=== PATIENT | male | born 1940 | race Caucasian/White ===

== ENCOUNTER 2021-08-11 06:01 | Inpatient (IN) | payer MEDICARE ==
[~2021-08-11] VITALS: Ht 179.1 cm; Wt 74.4 kg
[~2021-08-11 06:01] MED LIST: BAYER PM CAPLE1 EACH PO; CLOPIDOGREL75 MG PO; DONEPEZIL HCL5 MG PO; FISH OIL PO; METOPROLOL SUCC50 MG PO; PRAVASTATIN SOD40 MG PO; PROTONIX40 MG/ML PO; TERBINAFINE HC250 MG PO; VIT D PO; [UNRECOGNIZED DRUG - OTHER] PO
[2021-08-11] MEDS ORDERED: SODIUM CHLORIDE 0.9% 1000ML 1,000 ML IV STA (06:35)
[2021-08-11 06:53] LABS: BASOPHILS % 0.3 % (0.0-1.0); HEMOGLOBIN 16.3 g/dL (14.0-18.0); LYMPHOCYTES # (AUTO) 0.2 (1.0-3.2); LYMPHOCYTES % 1.3 % (18.0-39.1); MEAN CORPUSCULAR HEMOGLOBIN 30.4 pg (28-32); MEAN CORPUSCULAR HGB CONC 32.6 g/dL (31-35); MEAN CORPUSCULAR VOLUME 93.3 fL (81-99); MONOCYTES # (AUTO) 0.3 (0.2-0.8); MONOCYTES % 1.9 % (4.4-11.3); NEUTROPHILS # (AUTO) 14.5 (2.1-6.9); NEUTROPHILS % 95.6 % (38.7-80.0); PLATELET COUNT 110 x10e3/uL (140-360); RED BLOOD COUNT 5.36 x10e6/uL (4.3-5.7); RED CELL DISTRIBUTION WIDTH 13.9 % (11.7-14.4)
[2021-08-11 08:07] LABS: INR 1.08; PROTHROMBIN TIME 14.9 seconds (11.9-14.5)
[2021-08-11 08:08] LABS: PARTIAL THROMBOPLASTIN TIME 22.9 seconds (23.8-35.5)
[2021-08-11 08:10] LABS: CLARITY,URINE CLOUDY (CLEAR); COLOR,URINE YELLOW (YELLOW); KETONES,URINE NEGATIVE (NEGATIVE); LEUKOCYTE ESTERASE ,URINE NEGATIVE (NEGATIVE); NITRITE,URINE NEGATIVE (NEGATIVE); PROTEIN,URINE DIPSTICK >=300 (NEGATIVE); URINE UROBILINOGEN 0.2 mg/dL (0.2 - 1)
[2021-08-11] MEDS: CEFEPIME 2 GM in SODIUM CHLORIDE 0.9% 100 ML IV SCH ×2 (08:13→22:00)
[2021-08-11 08:30] LABS: ALBUMIN 3.7 g/dL (3.5-5.0); ANION GAP 17.9 mmol/L (8-16); CREATININE, SERUM 1.07 mg/dL (0.72-1.25); MAGNESIUM 1.6 MG/DL (1.3-2.1); POTASSIUM 3.9 mmol/L (3.5-5.1)
[2021-08-11 08:31] LABS: BACTERIA,URINE MODERATE /HPF; EPITHELIAL CELLS,URINE FEW /LPF; WBC,URINE (MAN) 21-50 /HPF (0-5)
[2021-08-11] MEDS ORDERED: LEVOTHYROXINE50 MCG PO (08:41)
[2021-08-11] MEDS ORDERED: ELIQUIS2.5 MG PO (08:41)
[2021-08-11] MEDS ORDERED: FAMOTIDINE20 MG PO (08:43)
[2021-08-11] MEDS ORDERED: IRON PO (08:43)
[2021-08-11] MEDS ORDERED: KEPPRA750 MG PO (08:43)
[2021-08-11] MEDS ORDERED: METOPROLOL TART25 MG PO (08:44)
[2021-08-11 08:49] LABS: CREATINE KINASE MB 1.5 ng/mL (0-5.0)
[2021-08-11] MEDS ORDERED: ONDANSETRON HCL INJ 2MG/ML 2ML 2 MG/ML VIAL IV PRN ×2 (09:15→14:00)
[2021-08-11] MEDS: FAMOTIDINE 20 MG/2 ML VIAL IV SCH (09:27)
[2021-08-11] MEDS ORDERED: SODIUM CHLORIDE 0.9% 500ML 500 ML IV ONE (09:30)
[2021-08-11] MEDS ORDERED: SODIUM CHLORIDE 0.9% 500ML 500 ML ONE (09:32)
[2021-08-11] MEDS: SODIUM CHLORIDE 0.9% 1000ML 1,000 ML IV SCH ×2 (10:25→22:00)
[2021-08-11 11:21] VITALS: BP 113/91
[2021-08-11 11:51] VITALS: BP 113/91
[2021-08-11 11:55] VITALS: BP 113/91
[2021-08-11 15:34] VITALS: BP 111/84
[2021-08-11] MEDS: FAMOTIDINE 20 MG TAB PO SCH (16:02)
[2021-08-11] MEDS: LEVETIRACETAM 500 MG TAB PO SCH (16:02)
[2021-08-11 17:31] LABS: CREATINE KINASE MB 1.6 ng/mL (0-5.0)
[2021-08-11 19:57] VITALS: BP 128/98
[2021-08-11 21:00] VITALS: BP 128/98
[2021-08-11] MEDS: PRAVASTATIN 20 MG TAB PO SCH (22:00)
[2021-08-12 04:49] VITALS: BP 144/97
[2021-08-12 06:03] LABS: BASOPHILS # (AUTO) 0.1 (0.0-0.1); BASOPHILS % 0.3 % (0.0-1.0); EOSINOPHILS % 0.1 % (0.0-6.0); HEMOGLOBIN 16.2 g/dL (14.0-18.0); LYMPHOCYTES # (AUTO) 0.6 (1.0-3.2); LYMPHOCYTES % 4.1 % (18.0-39.1); MEAN CORPUSCULAR HEMOGLOBIN 30.4 pg (28-32); MEAN CORPUSCULAR HGB CONC 33.1 g/dL (31-35); MEAN CORPUSCULAR VOLUME 91.9 fL (81-99); MONOCYTES # (AUTO) 1.1 (0.2-0.8); MONOCYTES % 7.3 % (4.4-11.3); NEUTROPHILS # (AUTO) 12.8 (2.1-6.9); NEUTROPHILS % 87.7 % (38.7-80.0); PLATELET COUNT 100 x10e3/uL (140-360); RED BLOOD COUNT 5.33 x10e6/uL (4.3-5.7); RED CELL DISTRIBUTION WIDTH 14.1 % (11.7-14.4)
[2021-08-12 06:37] LABS: ALBUMIN/GLOBULIN RATIO 0.9 (0.8-2.0); ANION GAP 13.7 mmol/L (8-16); CALCIUM 8.6 mg/dL (8.4-10.2); CHOL/HDL RATIO 2.1 (3.9-4.7); CREATININE, SERUM 0.78 mg/dL (0.72-1.25); POTASSIUM 3.7 mmol/L (3.5-5.1)
[2021-08-12 06:44] LABS: CREATINE KINASE MB 1.4 ng/mL (0-5.0)
[2021-08-12] MEDS: LEVOTHYROXINE SODIUM 50 MCG TAB PO SCH (06:45)
[2021-08-12 07:55] VITALS: BP 144/103
[2021-08-12 08:00] VITALS: BP 144/103
[2021-08-12] MEDS: CEFEPIME 2 GM in SODIUM CHLORIDE 0.9% 100 ML IV SCH ×2 (08:05→20:45)
[2021-08-12] MEDS: FAMOTIDINE 20 MG/2 ML VIAL IV SCH (08:06)
[2021-08-12] MEDS: LEVETIRACETAM 500 MG TAB PO SCH ×2 (08:07→16:03)
[2021-08-12] MEDS: APIXAB 2.5 MG TABLET PO SCH (08:07)
[2021-08-12] MEDS: DONEPEZIL HCL 5 MG TAB PO SCH (08:08)
[2021-08-12] MEDS: FAMOTIDINE 20 MG TAB PO SCH ×2 (08:08→16:03)
[2021-08-12] MEDS ORDERED: METOPROLOL TARTRATE 25 MG TAB PO SCH (09:00)
[2021-08-12 11:55] VITALS: BP 150/108
[2021-08-12 15:34] VITALS: BP 152/107
[2021-08-12 20:00] VITALS: BP 171/112
[2021-08-12] MEDS: CLONIDINE HCL 0.1 MG TAB PO PRN (20:45)
[2021-08-12] MEDS: PRAVASTATIN 20 MG TAB PO SCH (20:45)
[2021-08-13] VITALS (9 sets, daily range): BP systolic 85–151; BP diastolic 56–113
[2021-08-13] MEDS ORDERED: HYDRALAZINE HCL 20 MG/ML VIAL ONE (04:14)
[2021-08-13] MEDS: CLONIDINE HCL 0.1 MG TAB PO PRN (04:18)
[2021-08-13] MEDS: HYDRALAZINE HCL 20 MG/ML VIAL IV PRN (04:18)
[2021-08-13] MEDS: LEVOTHYROXINE SODIUM 50 MCG TAB PO SCH (05:44)
[2021-08-13 05:54] LABS: HEMATOCRIT 44.2 % (38.2-49.6); HEMOGLOBIN 14.9 g/dL (14.0-18.0); MEAN CORPUSCULAR HEMOGLOBIN 30.3 pg (28-32); MEAN CORPUSCULAR HGB CONC 33.7 g/dL (31-35); MEAN CORPUSCULAR VOLUME 89.8 fL (81-99); NEUTROPHILS % 87.4 % (38.7-80.0); PLATELET COUNT 101 x10e3/uL (140-360); RED BLOOD COUNT 4.92 x10e6/uL (4.3-5.7); RED CELL DISTRIBUTION WIDTH 13.5 % (11.7-14.4)
[2021-08-13 05:55] LABS: BASOPHILS % 0.3 % (0.0-1.0); EOSINOPHILS % 0.2 % (0.0-6.0); LYMPHOCYTES # (AUTO) 0.6 (1.0-3.2); LYMPHOCYTES % 4.4 % (18.0-39.1); MONOCYTES % 7.3 % (4.4-11.3); NEUTROPHILS # (AUTO) 11.8 (2.1-6.9)
[2021-08-13] MEDS: CEFEPIME 2 GM in SODIUM CHLORIDE 0.9% 100 ML IV SCH (08:12)
[2021-08-13] MEDS: DONEPEZIL HCL 5 MG TAB PO SCH (08:13)
[2021-08-13] MEDS: APIXAB 2.5 MG TABLET PO SCH (08:13)
[2021-08-13] MEDS: LEVETIRACETAM 500 MG TAB PO SCH ×2 (08:14→16:17)
[2021-08-13] MEDS: FAMOTIDINE 20 MG TAB PO SCH ×2 (08:14→16:17)
[2021-08-13] MEDS: METOPROLOL TARTRATE 25 MG TAB PO SCH ×2 (09:00→13:07)
[2021-08-13] MEDS: ACETAMINOPHEN 325 MG TAB PO PRN (10:59)
[2021-08-13] MEDS ORDERED: ONDANSETRON HCL 4 MG ORAL DISINTEGRATING TAB PO PRN (15:30)
[2021-08-13] MEDS ORDERED: IOPAMIDOL 370 MG/ML 200 ML INFUS..BTL INJ ONE (16:11)
[2021-08-13] MEDS ORDERED: SODIUM CHLORIDE 0.9% 50ML 50 ML ONE (16:11)
[2021-08-13] MEDS: PRAVASTATIN 20 MG TAB PO SCH (21:40)
[2021-08-13] MEDS: CEFEPIME 1 GM in SODIUM CHLORIDE 0.9% 100 ML IV SCH (21:40)
[2021-08-14] VITALS (11 sets, daily range): BP systolic 90–157; BP diastolic 69–107
[2021-08-14 06:10] LABS: ALBUMIN 2.6 g/dL (3.5-5.0); ANION GAP 14.3 mmol/L (8-16); CALCIUM 8.7 mg/dL (8.4-10.2); CREATININE, SERUM 1.31 mg/dL (0.72-1.25); POTASSIUM 4.3 mmol/L (3.5-5.1)
[2021-08-14] MEDS: LEVOTHYROXINE SODIUM 50 MCG TAB PO SCH (06:47)
[2021-08-14 06:49] LABS: BASOPHILS % 0.3 % (0.0-1.0); EOSINOPHILS % 0.3 % (0.0-6.0); HEMATOCRIT 42.9 % (38.2-49.6); HEMOGLOBIN 14.5 g/dL (14.0-18.0); LYMPHOCYTES # (AUTO) 0.6 (1.0-3.2); LYMPHOCYTES % 3.9 % (18.0-39.1); MEAN CORPUSCULAR HEMOGLOBIN 30.7 pg (28-32); MEAN CORPUSCULAR HGB CONC 33.8 g/dL (31-35); MEAN CORPUSCULAR VOLUME 90.7 fL (81-99); MONOCYTES # (AUTO) 1.2 (0.2-0.8); MONOCYTES % 7.3 % (4.4-11.3); NEUTROPHILS # (AUTO) 13.8 (2.1-6.9); NEUTROPHILS % 87.7 % (38.7-80.0); RED BLOOD COUNT 4.73 x10e6/uL (4.3-5.7); RED CELL DISTRIBUTION WIDTH 13.9 % (11.7-14.4)
[2021-08-14 06:54] LABS: PLATELET COUNT 74 x10e3/uL (140-360)
[2021-08-14 07:54] LABS: BILIRUBIN,DIRECT 0.7 mg/dL (0.0-0.5)
[2021-08-14] MEDS: FAMOTIDINE 20 MG TAB PO SCH (08:42)
[2021-08-14] MEDS: APIXAB 2.5 MG TABLET PO SCH (08:42)
[2021-08-14] MEDS: CEFEPIME 1 GM in SODIUM CHLORIDE 0.9% 100 ML IV SCH (08:42)
[2021-08-14] MEDS: DONEPEZIL HCL 5 MG TAB PO SCH (08:42)
[2021-08-14] MEDS: LEVETIRACETAM 500 MG TAB PO SCH ×2 (08:42→17:35)
[2021-08-14] MEDS: METOPROLOL TARTRATE 25 MG TAB PO SCH (08:42)
[2021-08-14] MEDS: HYDRALAZINE HCL 20 MG/ML VIAL IV PRN (08:43)
[2021-08-14] MEDS ORDERED: SODIUM CHLORIDE 0.9% 1000ML 1,000 ML IV SCH (11:30)
[2021-08-14] MEDS: SODIUM CHLORIDE 0.9% 1000ML 1,000 ML IV SCH ×2 (12:28→21:30)
[2021-08-14] MEDS: SODIUM CHLORIDE 1 GM TAB PO SCH ×2 (12:28→21:30)
[2021-08-14] MEDS ORDERED: MAGNESIUM SULFATE 2GM/50ML 50 ML IV ONE (12:30)
[2021-08-14] MEDS: AMIODARONE HCL 200 MG TAB PO SCH (17:35)
[2021-08-14] MEDS: PRAVASTATIN 20 MG TAB PO SCH (21:30)
[2021-08-15] VITALS (9 sets, daily range): BP systolic 102–132; BP diastolic 70–102
[2021-08-15] MEDS: HYDRALAZINE HCL 20 MG/ML VIAL IV PRN (01:40)
[2021-08-15 05:00] LABS: BASOPHILS % 0.2 % (0.0-1.0); EOSINOPHILS % 0.2 % (0.0-6.0); HEMATOCRIT 39.6 % (38.2-49.6); HEMOGLOBIN 14.1 g/dL (14.0-18.0); LYMPHOCYTES # (AUTO) 0.5 (1.0-3.2); LYMPHOCYTES % 2.5 % (18.0-39.1); MEAN CORPUSCULAR HEMOGLOBIN 30.9 pg (28-32); MEAN CORPUSCULAR HGB CONC 35.6 g/dL (31-35); MEAN CORPUSCULAR VOLUME 86.8 fL (81-99); MONOCYTES # (AUTO) 1.5 (0.2-0.8); MONOCYTES % 8.6 % (4.4-11.3); NEUTROPHILS # (AUTO) 15.7 (2.1-6.9); NEUTROPHILS % 87.6 % (38.7-80.0); PLATELET COUNT 76 x10e3/uL (140-360); RED BLOOD COUNT 4.56 x10e6/uL (4.3-5.7); RED CELL DISTRIBUTION WIDTH 13.6 % (11.7-14.4)
[2021-08-15 05:31] LABS: ALBUMIN 2.2 g/dL (3.5-5.0); ALBUMIN/GLOBULIN RATIO 0.6 (0.8-2.0); ANION GAP 12.8 mmol/L (8-16); CALCIUM 8.3 mg/dL (8.4-10.2); CREATININE, SERUM 1.06 mg/dL (0.72-1.25); POTASSIUM 3.8 mmol/L (3.5-5.1)
[2021-08-15] MEDS: LEVOTHYROXINE SODIUM 50 MCG TAB PO SCH (06:46)
[2021-08-15] MEDS: DONEPEZIL HCL 5 MG TAB PO SCH (08:49)
[2021-08-15] MEDS: LEVETIRACETAM 500 MG TAB PO SCH ×2 (08:49→17:26)
[2021-08-15] MEDS: AMIODARONE HCL 200 MG TAB PO SCH (08:49)
[2021-08-15] MEDS: SODIUM CHLORIDE 0.9% 1000ML 1,000 ML IV SCH (08:49)
[2021-08-15] MEDS: SODIUM CHLORIDE 1 GM TAB PO SCH ×3 (08:50→21:23)
[2021-08-15] MEDS: METOPROLOL TARTRATE 25 MG TAB PO SCH (08:50)
[2021-08-15] MEDS ORDERED: ALBUTEROL SULF 0.083% NEB SOLN 3 ML NEB NEB PRN (10:45)
[2021-08-15] MEDS: POLYETHYLENE GLYCOL 3350 17 GM PACK PO SCH (11:15)
[2021-08-15] MEDS ORDERED: FUROSEMIDE INJ 10 MG/ML 2 ML VIAL IV ONE (15:45)
[2021-08-15] MEDS: PIPERACILLIN/TAZOBACTAM 3.375 GM in SODIUM CHLORIDE 0.9% 50ML 50 ML IV SCH ×2 (17:25→21:23)
[2021-08-15] MEDS: APIXAB 2.5 MG TABLET PO SCH (17:26)
[2021-08-15] MEDS: BENZONATATE 100 MG CAP PO SCH (18:13)
[2021-08-15] MEDS: PRAVASTATIN 20 MG TAB PO SCH (21:23)
[2021-08-16] VITALS (7 sets, daily range): BP systolic 131–150; BP diastolic 96–116
[2021-08-16] MEDS: PIPERACILLIN/TAZOBACTAM 3.375 GM in SODIUM CHLORIDE 0.9% 50ML 50 ML IV SCH (05:40)
[2021-08-16] MEDS: LEVOTHYROXINE SODIUM 50 MCG TAB PO SCH (05:41)
[2021-08-16 05:58] LABS: BASOPHILS # (AUTO) 0.1 (0.0-0.1); BASOPHILS % 0.3 % (0.0-1.0); EOSINOPHILS % 0.2 % (0.0-6.0); HEMATOCRIT 38.6 % (38.2-49.6); LYMPHOCYTES # (AUTO) 0.3 (1.0-3.2); LYMPHOCYTES % 1.8 % (18.0-39.1); MEAN CORPUSCULAR HEMOGLOBIN 30.8 pg (28-32); MEAN CORPUSCULAR HGB CONC 36.3 g/dL (31-35); MEAN CORPUSCULAR VOLUME 84.8 fL (81-99); MONOCYTES # (AUTO) 1.7 (0.2-0.8); MONOCYTES % 10.1 % (4.4-11.3); NEUTROPHILS # (AUTO) 14.4 (2.1-6.9); NEUTROPHILS % 84.9 % (38.7-80.0); PLATELET COUNT 63 x10e3/uL (140-360); RED BLOOD COUNT 4.55 x10e6/uL (4.3-5.7); RED CELL DISTRIBUTION WIDTH 13.8 % (11.7-14.4)
[2021-08-16 06:51] LABS: ALBUMIN 2.2 g/dL (3.5-5.0); ALBUMIN/GLOBULIN RATIO 0.6 (0.8-2.0); ANION GAP 12.7 mmol/L (8-16); CALCIUM 8.6 mg/dL (8.4-10.2); CREATININE, SERUM 0.87 mg/dL (0.72-1.25); POTASSIUM 3.7 mmol/L (3.5-5.1)
[2021-08-16] MEDS: DOCUSATE SODIUM 100 MG CAP PO SCH ×2 (08:33→16:51)
[2021-08-16] MEDS: AMIODARONE HCL 200 MG TAB PO SCH (08:33)
[2021-08-16] MEDS: POLYETHYLENE GLYCOL 3350 17 GM PACK PO SCH (08:34)
[2021-08-16] MEDS: APIXAB 2.5 MG TABLET PO SCH ×2 (08:34→16:51)
[2021-08-16] MEDS: DONEPEZIL HCL 5 MG TAB PO SCH (08:34)
[2021-08-16] MEDS: SODIUM CHLORIDE 1 GM TAB PO SCH ×3 (08:34→21:21)
[2021-08-16] MEDS: BENZONATATE 100 MG CAP PO SCH ×3 (08:34→21:00)
[2021-08-16] MEDS: LEVETIRACETAM 500 MG TAB PO SCH ×2 (08:37→16:51)
[2021-08-16] MEDS: METOPROLOL TARTRATE 25 MG TAB PO SCH (08:38)
[2021-08-16] MEDS ORDERED: SODIUM CHLORIDE 1 GM TAB PO ONE (11:00)
[2021-08-16] MEDS: HYDRALAZINE HCL 20 MG/ML VIAL IV PRN (21:00)
[2021-08-16] MEDS: PRAVASTATIN 20 MG TAB PO SCH (21:00)
[2021-08-17] VITALS (8 sets, daily range): BP systolic 109–116; BP diastolic 85–94
[2021-08-17] MEDS: LEVOTHYROXINE SODIUM 50 MCG TAB PO SCH (05:49)
[2021-08-17 06:22] LABS: ALBUMIN 2.1 g/dL (3.5-5.0); ALBUMIN/GLOBULIN RATIO 0.6 (0.8-2.0); ANION GAP 12.6 mmol/L (8-16); CALCIUM 8.9 mg/dL (8.4-10.2); CREATININE, SERUM 0.78 mg/dL (0.72-1.25); POTASSIUM 3.6 mmol/L (3.5-5.1)
[2021-08-17] MEDS: DOCUSATE SODIUM 100 MG CAP PO SCH ×2 (09:18→17:16)
[2021-08-17] MEDS: SODIUM CHLORIDE 1 GM TAB PO SCH ×3 (09:18→20:58)
[2021-08-17] MEDS: LEVETIRACETAM 500 MG TAB PO SCH ×2 (09:18→17:16)
[2021-08-17] MEDS: APIXAB 2.5 MG TABLET PO SCH ×2 (09:18→17:16)
[2021-08-17] MEDS: POLYETHYLENE GLYCOL 3350 17 GM PACK PO SCH (09:18)
[2021-08-17] MEDS: AMIODARONE HCL 200 MG TAB PO SCH (09:18)
[2021-08-17] MEDS: BENZONATATE 100 MG CAP PO SCH ×3 (09:18→21:37)
[2021-08-17] MEDS: DONEPEZIL HCL 5 MG TAB PO SCH (09:18)
[2021-08-17] MEDS: METOPROLOL TARTRATE 25 MG TAB PO SCH (09:19)
[2021-08-17] MEDS ORDERED: LACTULOSE SYRUP 20 GM/30 ML UDC PO ONE (14:15)
[2021-08-17] MEDS ORDERED: CITRATE OF MAGNESIA 300ML BOTTLE PO PRN (18:30)
[2021-08-17] MEDS: PRAVASTATIN 20 MG TAB PO SCH (20:58)
[2021-08-18] VITALS (8 sets, daily range): BP systolic 123–150; BP diastolic 88–101
[2021-08-18] MEDS: LEVOTHYROXINE SODIUM 50 MCG TAB PO SCH (06:00)
[2021-08-18 06:34] LABS: BASOPHILS % 0.2 % (0.0-1.0); EOSINOPHILS # (AUTO) 0.2 (0.0-0.4); EOSINOPHILS % 1.3 % (0.0-6.0); HEMOGLOBIN 14.3 g/dL (14.0-18.0); LYMPHOCYTES # (AUTO) 0.6 (1.0-3.2); LYMPHOCYTES % 3.3 % (18.0-39.1); MEAN CORPUSCULAR HEMOGLOBIN 29.9 pg (28-32); MEAN CORPUSCULAR VOLUME 87.7 fL (81-99); MONOCYTES # (AUTO) 1.3 (0.2-0.8); MONOCYTES % 7.1 % (4.4-11.3); NEUTROPHILS # (AUTO) 15.9 (2.1-6.9); NEUTROPHILS % 86.9 % (38.7-80.0); PLATELET COUNT 83 x10e3/uL (140-360); RED BLOOD COUNT 4.79 x10e6/uL (4.3-5.7); RED CELL DISTRIBUTION WIDTH 14.4 % (11.7-14.4)
[2021-08-18 07:18] LABS: ANION GAP 11.9 mmol/L (8-16); CALCIUM 8.5 mg/dL (8.4-10.2); CREATININE, SERUM 0.74 mg/dL (0.72-1.25); POTASSIUM 3.9 mmol/L (3.5-5.1)
[2021-08-18] MEDS: DONEPEZIL HCL 5 MG TAB PO SCH (08:54)
[2021-08-18] MEDS: DOCUSATE SODIUM 100 MG CAP PO SCH ×2 (08:54→16:51)
[2021-08-18] MEDS: AMIODARONE HCL 200 MG TAB PO SCH (08:54)
[2021-08-18] MEDS: POLYETHYLENE GLYCOL 3350 17 GM PACK PO SCH (08:54)
[2021-08-18] MEDS: APIXAB 2.5 MG TABLET PO SCH ×2 (08:54→16:51)
[2021-08-18] MEDS: METOPROLOL TARTRATE 25 MG TAB PO SCH (08:54)
[2021-08-18] MEDS: BENZONATATE 100 MG CAP PO SCH ×3 (08:55→21:00)
[2021-08-18] MEDS: SODIUM CHLORIDE 1 GM TAB PO SCH ×3 (08:55→21:00)
[2021-08-18] MEDS: LEVETIRACETAM 500 MG TAB PO SCH ×2 (09:24→16:51)
[2021-08-18] MEDS: PRAVASTATIN 20 MG TAB PO SCH (21:00)
[2021-08-19] VITALS (8 sets, daily range): BP systolic 108–174; BP diastolic 66–110
[2021-08-19] MEDS: ACETAMINOPHEN 325 MG TAB PO PRN ×2 (01:52→20:38)
[2021-08-19] MEDS: LEVOTHYROXINE SODIUM 50 MCG TAB PO SCH (06:05)
[2021-08-19 06:55] LABS: CALCIUM 9.5 mg/dL (8.4-10.2); CREATININE, SERUM 0.67 mg/dL (0.72-1.25)
[2021-08-19] MEDS: POLYETHYLENE GLYCOL 3350 17 GM PACK PO SCH (08:58)
[2021-08-19] MEDS: DONEPEZIL HCL 5 MG TAB PO SCH (09:01)
[2021-08-19] MEDS: FUROSEMIDE 20 MG TAB PO SCH (09:01)
[2021-08-19] MEDS: DOCUSATE SODIUM 100 MG CAP PO SCH ×2 (09:01→17:34)
[2021-08-19] MEDS: APIXAB 2.5 MG TABLET PO SCH ×2 (09:03→17:34)
[2021-08-19] MEDS: LEVETIRACETAM 500 MG TAB PO SCH ×2 (09:03→17:35)
[2021-08-19] MEDS: SODIUM CHLORIDE 1 GM TAB PO SCH (09:04)
[2021-08-19] MEDS: BENZONATATE 100 MG CAP PO SCH ×3 (09:06→20:38)
[2021-08-19] MEDS: METOPROLOL TARTRATE 25 MG TAB PO SCH (09:06)
[2021-08-19] MEDS: AMIODARONE HCL 200 MG TAB PO SCH (09:06)
[2021-08-19] MEDS: PRAVASTATIN 20 MG TAB PO SCH (20:38)
[2021-08-20] VITALS (8 sets, daily range): BP systolic 90–179; BP diastolic 58–128
[2021-08-20] MEDS ORDERED: ACETAMINOPHEN/CODEINE 300MG - 30MG TAB PO PRN
[2021-08-20] MEDS: HYDRALAZINE HCL 20 MG/ML VIAL IV PRN (00:18)
[2021-08-20] MEDS: ACETAMINOPHEN 325 MG TAB PO PRN (04:50)
[2021-08-20] MEDS ORDERED: SODIUM CHLORIDE 0.9% 1000ML 1,000 ML IV SCH (05:00)
[2021-08-20 05:23] LABS: BASOPHILS % 0.3 % (0.0-1.0); EOSINOPHILS % 0.1 % (0.0-6.0); HEMATOCRIT 43.5 % (38.2-49.6); LYMPHOCYTES # (AUTO) 0.2 (1.0-3.2); LYMPHOCYTES % 1.9 % (18.0-39.1); MEAN CORPUSCULAR HEMOGLOBIN 30.7 pg (28-32); MEAN CORPUSCULAR HGB CONC 34.5 g/dL (31-35); MONOCYTES # (AUTO) 0.1 (0.2-0.8); MONOCYTES % 0.5 % (4.4-11.3); NEUTROPHILS # (AUTO) 10.8 (2.1-6.9); NEUTROPHILS % 96.6 % (38.7-80.0); PLATELET COUNT 141 x10e3/uL (140-360); RED BLOOD COUNT 4.89 x10e6/uL (4.3-5.7); RED CELL DISTRIBUTION WIDTH 14.6 % (11.7-14.4)
[2021-08-20] MEDS: LEVOTHYROXINE SODIUM 50 MCG TAB PO SCH (05:28)
[2021-08-20 05:41] LABS: ALBUMIN 2.4 g/dL (3.5-5.0); ALBUMIN/GLOBULIN RATIO 0.7 (0.8-2.0); ANION GAP 18.4 mmol/L (8-16); CREATININE, SERUM 0.72 mg/dL (0.72-1.25); POTASSIUM 3.4 mmol/L (3.5-5.1)
[2021-08-20] MEDS ORDERED: IOPAMIDOL 370 MG/ML 200 ML INFUS..BTL INJ ONE (06:06)
[2021-08-20] MEDS ORDERED: SODIUM CHLORIDE 0.9% 50ML 50 ML ONE (06:06)
[2021-08-20] MEDS ORDERED: BENZONATATE 100 MG CAP PO PRN (08:30)
[2021-08-20] MEDS: METOPROLOL TARTRATE 25 MG TAB PO SCH ×3 (09:00→17:06)
[2021-08-20] MEDS: DONEPEZIL HCL 5 MG TAB PO SCH (09:50)
[2021-08-20] MEDS: AMIODARONE HCL 200 MG TAB PO SCH (09:50)
[2021-08-20] MEDS: DOCUSATE SODIUM 100 MG CAP PO SCH ×2 (09:50→17:05)
[2021-08-20] MEDS: POLYETHYLENE GLYCOL 3350 17 GM PACK PO SCH (09:51)
[2021-08-20] MEDS: APIXAB 2.5 MG TABLET PO SCH ×2 (09:51→17:05)
[2021-08-20] MEDS: LEVETIRACETAM 500 MG TAB PO SCH ×2 (09:51→17:05)
[2021-08-20] MEDS: FUROSEMIDE 20 MG TAB PO SCH (09:51)
[2021-08-20] MEDS ORDERED: DIGOXIN 0.125 MG TAB PO ONE (10:45)
[2021-08-20] MEDS ORDERED: POTASSIUM CHLORIDE 20 MEQ TAB CR PO ONE (12:00)
[2021-08-20] MEDS: MEROPENEM 500 MG in SODIUM CHLORIDE 0.9% 50ML 50 ML IV SCH (21:45)
[2021-08-20] MEDS: PRAVASTATIN 20 MG TAB PO SCH (21:45)
[2021-08-21 05:16] VITALS: BP 125/99
[2021-08-21] MEDS: MEROPENEM 500 MG in SODIUM CHLORIDE 0.9% 50ML 50 ML IV SCH ×3 (05:42→21:10)
[2021-08-21] MEDS: LEVOTHYROXINE SODIUM 50 MCG TAB PO SCH (05:42)
[2021-08-21 08:03] VITALS: BP 137/95
[2021-08-21] MEDS: APIXAB 2.5 MG TABLET PO SCH ×2 (11:49→17:57)
[2021-08-21] MEDS: DONEPEZIL HCL 5 MG TAB PO SCH (11:49)
[2021-08-21] MEDS: LEVETIRACETAM 500 MG TAB PO SCH ×2 (11:49→17:58)
[2021-08-21] MEDS: DOCUSATE SODIUM 100 MG CAP PO SCH ×2 (11:49→17:57)
[2021-08-21] MEDS: AMIODARONE HCL 200 MG TAB PO SCH (11:49)
[2021-08-21] MEDS: DIGOXIN 0.125 MG TAB PO SCH (11:49)
[2021-08-21] MEDS: FUROSEMIDE 20 MG TAB PO SCH (11:50)
[2021-08-21] MEDS: POLYETHYLENE GLYCOL 3350 17 GM PACK PO SCH (11:50)
[2021-08-21] MEDS: METOPROLOL TARTRATE 25 MG TAB PO SCH ×2 (11:51→18:00)
[2021-08-21 12:00] VITALS: BP 120/85
[2021-08-21] MEDS ORDERED: POTASSIUM CHLORIDE 20 MEQ TAB CR PO ONE (12:45)
[2021-08-21 16:14] VITALS: BP 119/83
[2021-08-21 20:12] VITALS: BP 145/96
[2021-08-21 20:23] VITALS: BP 145/96
[2021-08-21] MEDS: PRAVASTATIN 20 MG TAB PO SCH (21:10)
[2021-08-22] VITALS (8 sets, daily range): BP systolic 120–154; BP diastolic 91–105
[2021-08-22] MEDS: LEVOTHYROXINE SODIUM 50 MCG TAB PO SCH (06:05)
[2021-08-22] MEDS: MEROPENEM 500 MG in SODIUM CHLORIDE 0.9% 50ML 50 ML IV SCH ×3 (06:05→20:40)
[2021-08-22] MEDS: DONEPEZIL HCL 5 MG TAB PO SCH (09:27)
[2021-08-22] MEDS: DIGOXIN 0.125 MG TAB PO SCH (09:27)
[2021-08-22] MEDS: METOPROLOL TARTRATE 25 MG TAB PO SCH ×2 (09:27→17:31)
[2021-08-22] MEDS: AMIODARONE HCL 200 MG TAB PO SCH (09:27)
[2021-08-22] MEDS: DOCUSATE SODIUM 100 MG CAP PO SCH ×2 (09:27→17:30)
[2021-08-22] MEDS: LEVETIRACETAM 500 MG TAB PO SCH ×2 (09:27→17:30)
[2021-08-22] MEDS: FUROSEMIDE 20 MG TAB PO SCH (09:27)
[2021-08-22] MEDS: POLYETHYLENE GLYCOL 3350 17 GM PACK PO SCH (09:27)
[2021-08-22] MEDS: APIXAB 2.5 MG TABLET PO SCH ×2 (09:27→17:30)
[2021-08-22] MEDS ORDERED: POTASSIUM CHLORIDE 20MEQ/100ML 200 ML IV ONE (12:30)
[2021-08-22] MEDS ORDERED: BISACODYL 10 MG SUPP PR ONE (19:45)
[2021-08-22] MEDS: PRAVASTATIN 20 MG TAB PO SCH (20:40)
[2021-08-23 00:18] VITALS: BP 139/93
[2021-08-23 06:16] VITALS: BP 135/99
[2021-08-23] MEDS: LEVOTHYROXINE SODIUM 50 MCG TAB PO SCH (06:38)
[2021-08-23] MEDS: MEROPENEM 500 MG in SODIUM CHLORIDE 0.9% 50ML 50 ML IV SCH ×2 (06:38→13:58)
[2021-08-23 07:40] VITALS: BP 131/90
[2021-08-23] MEDS: DOCUSATE SODIUM 100 MG CAP PO SCH (09:03)
[2021-08-23] MEDS: DONEPEZIL HCL 5 MG TAB PO SCH (09:03)
[2021-08-23] MEDS: APIXAB 2.5 MG TABLET PO SCH (09:03)
[2021-08-23] MEDS: AMIODARONE HCL 200 MG TAB PO SCH (09:03)
[2021-08-23] MEDS: LEVETIRACETAM 500 MG TAB PO SCH (09:03)
[2021-08-23] MEDS: POLYETHYLENE GLYCOL 3350 17 GM PACK PO SCH (09:04)
[2021-08-23] MEDS: FUROSEMIDE 20 MG TAB PO SCH (09:04)
[2021-08-23] MEDS: DIGOXIN 0.125 MG TAB PO SCH (09:04)
[2021-08-23] MEDS: METOPROLOL TARTRATE 25 MG TAB PO SCH (09:04)
[2021-08-23 11:32] VITALS: BP 115/89
[2021-08-23 15:35] VITALS: BP 128/91
== END 2021-08-23 17:06 | DRG 439 ==
LOC: ER 06:13 → ERHOLD 09:04 → MED/SURG3 11:07
PROVIDERS: ADMIT Internal Medicine; ATTEND Internal Medicine
DX: K85.80 Other acute pancreatitis without necrosis or infection (principal); N39.0 Urinary tract infection, site not specified; E87.1 Hypo-osmolality and hyponatremia; N17.9 Acute kidney failure, unspecified; I25.810 Atherosclerosis of coronary artery bypass graft(s) without angina pectoris; E78.00 Pure hypercholesterolemia, unspecified; G40.909 Epilepsy, unspecified, not intractable, without status epilepticus; Z79.01 Long term (current) use of anticoagulants; K86.9 Disease of pancreas, unspecified; Z91.81 History of falling; I35.0 Nonrheumatic aortic (valve) stenosis; I48.0 Paroxysmal atrial fibrillation; Z95.2 Presence of prosthetic heart valve; Z85.038 Personal history of other malignant neoplasm of large intestine; D69.59 Other secondary thrombocytopenia; Z86.73 Personal history of transient ischemic attack (TIA), and cerebral infarction without residual deficits; Z90.49 Acquired absence of other specified parts of digestive tract; G30.9 Alzheimer's disease, unspecified; F02.80 Dementia in other diseases classified elsewhere, unspecified severity, without behavioral disturbance, psychotic disturbance, mood disturbance, and anxiety; Z95.1 Presence of aortocoronary bypass graft; N40.1 Benign prostatic hyperplasia with lower urinary tract symptoms; R33.8 Other retention of urine
CPT/HCPCS: 36415; 70450; 71045; 71260; 72125; 74018; 74177; 74181; 76770; 80048; 80053; 80061; 80076; 81001; 82378; 82533; 82550; 82553; 83605; 83690; 83735; 83880; 84443; 84484; 84550; 85025; 85610; 85730; 86301; 87040; 87071; 87086; 87205; 93005; 93306; 94799; 96360; 96361; 97139; 99251; 99284; J0360; J0692; J1940; J2185; J2543; J3475; J3480; J7030; J7040; J7050; Q0162; Q9967; U0002